=== PATIENT | female | born 1950 | race Caucasian/White ===

== ENCOUNTER → 2017-02-13 | Outpatient (CLI) | payer OTHER | LOC: BMCIMAGING 08:25 | PROVIDERS: ATTEND Family Medicine | DX: R05 Cough (principal) ==

== ENCOUNTER → 2017-09-25 | Outpatient (CLI) | payer OTHER | LOC: FIMAGING 08:19 | PROVIDERS: ATTEND Internal Medicine | DX: Z12.31 Encounter for screening mammogram for malignant neoplasm of breast (principal) ==

== ENCOUNTER 2017-09-28 13:52 | Observation (INO) | payer OTHER ==
--- NOTE | 2017-09-28 14:13 | CPEKG ---
Heart Rate: 34 RR Interval: 1765 P-R Interval: 144 QRSD Interval: 86 QT Interval: 480 QTC Interval: 361 P [place]: 46 QRS [place]: 112 T Wave [place]: -2 EKG Severity - ABNORMAL ECG - EKG Impression: SINUS BRADYCARDIA EKG Impression: LEFT POSTERIOR FASCICULAR BLOCK EKG Impression: CONSIDER INFERIOR INFARCT EKG Impression: CONSIDER ANTERIOR INFARCT EKG Impression: BORDERLINE T WAVE ABNORMALITIES Electronically Signed By: Khushi Colin 28-Sep-2017 22:38:53
--- NOTE | 2017-09-28 14:14 | EDPHY ---
HPI/HX/ROS/PE/MDM Narrative: CHIEF COMPLAINT: Low heart rate, face lacerations secondary to fall HISTORY OF PRESENT ILLNESS: The patient is a 67 y/o female with a history of anorexia and bradycardia complaining of a low heart rate and facial lacerations secondary to a fall. In June 2016, the patient was admitted for syncope and bradycardia. Patient reports her heart rate often is in the upper 30s. Today she tripped over a ergonomics technician. Her then moved her to a chair where she had an episode of lightheadedness and syncope. Her reports the patient was shaking and unresponsive for 15 seconds. The patient also experienced urinary incontinence. Denies feeling lightheaded or dizzy prior to the fall. Admits to cough for the past week. Admits to receiving flu vaccination this year. Denies personal or familial history of seizures. Denies history of cardiac disease. Denies taking aspirin or anticoagulants. Followed by Dr. Lee, bank cashier. Prior visits reveal the patient has sinus bradycardia with known heart rates in the 40's. No fever, chills, chest pain, shortness of breath, palpitations, vomiting, diarrhea, urinary complaints, headache. REVIEW OF SYSTEMS: Aside from elements discussed in the HPI, a comprehensive 10-point review of systems was reviewed and is negative. PAST MEDICAL HISTORY: Hypothyroidism, anorexia SOCIAL HISTORY: at bedside, [facility] [place] VITAL SIGNS: HR: 42. BP: 154/92. Others reviewed by me GENERAL: Well-developed, well-nourished, resting comfortably in no respiratory distress. HEENT: Abrasion above left eye and nose, superficial abrasion and contusion on left side of lip. Eyes: No icterus, no injection. Mouth: moist mucous membranes. No erythema or lesions. Neck: supple with no adenopathy. LUNGS: Clear to auscultation bilaterally, no wheezes, rhonchi or rales. CARDIAC: Bradycardia, no rubs, murmurs or gallops. ABDOMEN: Soft, nontender, nondistended, bowel sounds normal. BACK: No CVA tenderness. EXTREMITIES: Abrasion and contusion to left knee. No edema. Range of motion is normal throughout. NEURO: Alert and oriented, grossly nonfocal. SKIN: Warm and dry, no rash. PSYCHIATRIC: Normal mentation, no agitation. Portions of this note were transcribed by a senior medical writer. I personally performed a history, physical exam, medical decision making, and confirmed accuracy of information the transcribed note. ED Course: The patient is a 67 y/o female with a history of anorexia and bradycardia presenting with multiple facial lacerations secondary to tripping over her ergonomics technician. This was followed by a syncopal episode/ ? seizure activity. Her neuro exam is normal. Patient's heart rate is currently between 38 and 42. Patient is followed by Dr. Lee, bank cashier. EKG, head CT, and labs ordered. 1L IV NS administered. 1412: 12-LEAD EKG: Please see the full report in [facility]. My interpretation: Sinus bradycardia with a rate of 34. Borderline T wave abnormalities. 1500: Spoke with radiologist, he reports the patient's head CT is negative. 1529: Consulted with hospitalist service, Dr. Campbell accepts admission of this patient. Dr. Lee will be consulted. 1540: Consulted with Dr. Lee, bank cashier, regarding the patient's symptoms. He agrees with my plan for admission. Per Dr. Lee, a holter in 2016 demonstrated typical rates in low to mid 40s with lowest rate of 34 documented during sleep. 1544: Reassessed patient and discussed imaging findings. I have also discussed plan for admission; patient and her are comfortable with this plan. MDM: Diff dx considered included sinus bradycardia, complete heart block, electrolyte abnormalities, prolonged vagal tone, coronary artery disease, acute coronary syndrome, sick sinus syndrome, seizure. - Data Points Imaging Results: Impression: 1. No acute intracranial findings. If symptoms persist and clinical suspicion warrants, consider MRI. 2. Diffuse cerebral atrophy, with periventricular and subcortical low attenuation consistent with chronic microvascular ischemic gliosis. Findings discussed with Khushi Colin M.D., on September 28, 2017 at 1500. Dictated By: Andreas Chu MD Imaging: Discussed imaging studies w/ callisthenics instructor Radiologist, I viewed and interpreted images myself Laboratory Results: Laboratory Results 09/28/17 14:24 09/28/17 14:24 Medications Given: Discontinued Medications Sodium Chloride (Ns) 1,000 mls @ 0 mls/hr IV ONCE ONE; Wide Open PRN Reason: Protocol Stop: 09/28/17 14:21 Last Admin: 09/28/17 14:28 Dose: 1,000 mls Levothyroxine Sodium (Synthroid) 75 mcg PO EVERY OTHER DAY [facility] Stop: 03/28/18 08:59 Last Admin: 09/29/17 08:12 Dose: 75 mcg Pravastatin Sodium (Pravachol) 10 mg PO HS [facility] Stop: 03/27/18 20:59 Last Admin: 09/28/17 21:04 Dose: 10 mg General Initial Vital Signs: Initial Vital Signs Temperature (C) 36.8 C 09/28/17 13:57 Heart Rate 35 L 09/28/17 13:57 Respiratory Rate 16 09/28/17 13:57 Blood Pressure 147/110 H 09/28/17 13:57 O2 Sat (%) 97 09/28/17 13:57 O2 Delivery Mode Room Air Allergies/Adverse Reactions: codeine Allergy (Verified 09/28/17 16:21) passed out shellfish derived Allergy (Verified 09/28/17 16:21) diarrhea, vomiting Home Medications: Medication Instructions Recorded Alendronate Sodium [Fosamax 70 MG 70 mg PO GONZALES@0700 07/14/16 (*)] Ascorbic Acid [Vitamin C 500 mg 500 mg PO DAILY 07/14/16 (*)] Cholecalciferol Vit D3 [Vitamin D3 2,000 units PO DAILY 07/14/16 (*)] Herbals/Supplements -Info Only 1 ea PO DAILY 07/14/16 Levothyroxine [Synthroid 50 mcg 50 mcg PO EVERY OTHER DAY 07/14/16 (*)] Levothyroxine [Synthroid 75 mcg 75 mcg PO EVERY OTHER DAY 07/14/16 (*)] Multivitamins [Multivitamin (*)] 1 each PO DAILY 07/14/16 Pravastatin Sodium [Pravachol] 10 mg PO HS 07/14/16 Calcium Citrate W/Vit D [Citracal 315 mg PO BID@15,21 09/28/17 + D] Departure - Departure Disposition: [facility] Acute Clinical Impression: Bradycardia Syncope Qualifiers: Syncope type: unspecified Qualified Code(s): R55 - Syncope and collapse Condition: Fair Report Scribed for: Khushi Colin Report Scribed by: Jaylyn Galindo Date of Report: 09/28/17 Time of Report: 14:11
[2017-09-28] MEDS ORDERED: NS 1,000 ML IV ONE (14:20)
[2017-09-28 14:31] LABS: PLATELET COUNT 197 10^3/uL (150-400)
[2017-09-28] MEDS ORDERED: ONDANSETRON 4 MG/2 ML VIAL IVP PRN (17:39)
[2017-09-28] MEDS ORDERED: ACETAMINOPHEN 325 MG TAB PO PRN (17:39)
[2017-09-28] MEDS ORDERED: IBUPROFEN 200 MG TAB PO PRN (17:39)
[2017-09-28] MEDS ORDERED: ONDANSETRON DISINTEGRATING 4 MG TAB PO PRN (17:39)
--- NOTE | 2017-09-28 18:18 | GHP ---
[f rep st] HISTORY AND PHYSICAL DATE OF ADMISSION: 09/28/2017 CHIEF COMPLAINT: Syncope. HISTORY OF PRESENT ILLNESS: This is a 67-year-old female who does have a known history of asymptomat ic bradycardia. She follows up with Dr. Lee. Today, she tripped over her ornamental bronze worker, fell on her f danyelle and sustained a little bit of lacerations on her lip and nose. Her was there and had her sit down and as she sat down, she began feeling dizzy and lightheaded, and then had a syncopal episo de. It was noticed that she had some twitching and did lose her urine, but was not particularly conf used afterwards. Currently, the patient is feeling great. She denies any dizziness, shortness of breath or chest pain . She has fainted several times in the past. She usually passes out when she cuts herself, and has in the past when she has not eaten on a plane ride, and when she has taken codeine before. She does not usually get lightheaded with exertion. She is actually quite active and just finished a bike iCrossing last year. REVIEW OF SYSTEMS: A 10-point review of systems was obtained, and other than stated is negative. PAST MEDICAL HISTORY: Hypothyroidism, hyperlipidemia. MEDICATIONS: Reviewed. SOCIAL HISTORY: No smoking. Occasional alcohol. She is quite active. FAMILY HISTORY: Reviewed and noncontributory. PHYSICAL EXAM: VITAL SIGNS: Afebrile, blood pressure is 130/75, heart rates in the 30s to low 40s, respiratory rate 16, oxygen saturation 97% in room air. GENERAL: The patient is well-developed, in no apparent distress. HEENT: Nonicteric sclerae. Extraocular movements intact. Moist mucous membr anes. There is some mild excoriation, laceration of nose and lip. NECK: Supple. No thyromegaly. LUNGS: Good air effort. Clear to auscultation bilaterally. CARDIOVASCULAR: Bradycardic. No murmu rs, rubs, or gallops. ABDOMEN: Positive bowel sounds, soft, nontender, nondistended. No hepatosple nomegaly. EXTREMITIES: No clubbing, cyanosis, or edema. SKIN: Without rash. Dry and intact. SHERYL ROLOGIC: Alert and oriented x3. Moving all 4 extremities equally. PSYCH: Normal mood and affect. LABS: CBC is normal. Chemistries normal. Troponin is negative. TSH is normal. No flu. IMAGING: Head CT negative for any acute changes. EKG shows sinus bradycardia and nonspecific T-wave abnormalities. ASSESSMENT AND PLAN: This is a 67-year-old female with a history of known bradycardia who had a sync opal episode immediately after a fall. 1. Syncope. This is most likely due to vasovagal response. She is prone to this. Says she does fa int when she cuts herself or has an injury. She does have known bradycardia and she appears to be as ymptomatic in her regular life. She has actually had multiple Holter monitors and has been follow [facility] Cardiology. Will admit her overnight for observation. Cardiology will see her in the morning. Dixie chaney will be able to discharge at that time. 2. Hypothyroidism. 3. Hyperlipidemia. /[id number]/MODL
[2017-09-28] MEDS ORDERED: PRAVASTATIN SODIUM 10 MG TAB PO SCH (21:00)
[2017-09-29 07:29] VITALS: TEMP 97.4
[2017-09-29] MEDS ORDERED: LEVOTHYROXINE 75 MCG TAB PO SCH (09:00)
--- NOTE | 2017-09-29 11:50 | GDS ---
[f rep st] DISCHARGE SUMMARY DISCHARGE DIAGNOSES: 1. Syncope, likely vasovagal. 2. Sinus bradycardia. HOSPITAL COURSE: Syncope: The patient was placed on the monitor where she has remained in sinus bra dycardic rhythm, without any malignant arrhythmias. On day of discharge, the patient states she feel s at her baseline and would like to go home. I suspect that her syncopal episode was vasovagal in et iology. PHYSICAL EXAMINATION: VITAL SIGNS: Blood pressure 109/68, pulse 47, respiratory rate 10. O2 saturat ion 96% on room air. Temperature afebrile. GENERAL: No acute distress. HEART: S1, S2. LUNGS: Chong ar. ABDOMEN: Soft. EXTREMITIES: No edema. LABS AND STUDIES: Done this hospital stay, head CT done 09/28/2017 showed no acute intracranial. DISCHARGE MEDICATIONS: Please refer to discharge medication reconciliation [facility] for details. DISCHARGE INSTRUCTIONS: The patient will be discharged from the hospital where she should follow up with her union carpenter. She was instructed to use caution and avoid activities where syncopal spell c ould result in a catastrophic injury. The patient verbalizes understanding of this. /[id number]/MODL
[2017-09-29 12:02] VITALS: BP 104/56; PULSE 44; RESP 14; O2SAT 95
--- NOTE | 2017-09-29 15:37 | ASDISCHSUM ---
Discharge Information Plan Status:Home with No Needs Medically Cleared to Leave:09/28/2017 Discharge Date:09/29/2017 12:30 PM CM D/C Disposition:Home, Routine, Self-Care ADT D/C Disposition:Home, Routine, Self-Care Projected Discharge Date:09/29/2017 12:00 AM Transportation at D/C:Family Discharge Delay Reason: Follow-Up Date:09/29/2017 12:00 AM Discharge Slot: Final Diagnosis:Brett, Syncope, Facial injuries Placement Information Patient Contact Information Contact Name:RICHARDDewey ROSENBAUM Relationship: Address:[facility] KAMRYN MICHAEL Work Phone: City:[place] [facility] Phone: [facility]/Zip Code:[place] [address] Email: Financial Information Financial Class: Primary Plan Desc:MEDICARE OUTPATIENT Primary Plan Number:[id number] Secondary Plan Desc:STANDARD LIFE AND ACCIDENT Secondary Plan Number:[id number] Assessment Information Case Management Discharge Plan Note Case Management Discharge Discharge Order Complete? Answers: Yes Patient to Obtain Answers: via Family Medications Transportation Arranged Answers: Family/Friends Transport will Pick (Date 09/29/2017 12:00 AM & Time) Family Notified Answers: Yes Notes: present Discharge Comments Notes: 67 year old female admitted after a fall, syncope at home. She also sustained facial lacerations. Patient has a hx of hypothyroid and HLD. She felt fine today and wanted to be discharged home. She will follow up with her lockstitch shoulder joiner. Date Signed: 09/29/2017 03:34 PM Electronically Signed By:Chanelle Madison LCSW Intervention Information Intervention Type:COLBY-Signed Date of Service:09/29/2017 10:22 AM Patient Type:Observation Staff Member:Elisa Billingsley Hours: Discipline: Severity: Comment:
[2017-09-30] MEDS ORDERED: LEVOTHYROXINE 50 MCG TAB PO SCH (09:00)
== END 2017-09-29 12:30 | disposition home or self-care (01) ==
LOC: F2N 17:24
PROVIDERS: ADMIT Internal Medicine; ATTEND Internal Medicine
DX: R55 Syncope and collapse (principal); S01.511A Laceration without foreign body of lip, initial encounter; S01.21XA Laceration without foreign body of nose, initial encounter; R00.1 Bradycardia, unspecified; E03.9 Hypothyroidism, unspecified; E78.5 Hyperlipidemia, unspecified; W01.0XXA Fall on same level from slipping, tripping and stumbling without subsequent striking against object, initial encounter
CPT/HCPCS: 70450; 93005; G0378

== ENCOUNTER 2018-02-20 17:29 | Inpatient (IN) | payer OTHER ==
[2018-02-20] MEDS ORDERED: ONDANSETRON 4 MG/2 ML VIAL IVP PRN (21:37)
[2018-02-20] MEDS ORDERED: ONDANSETRON DISINTEGRATING 4 MG TAB PO PRN (21:37)
[2018-02-20] MEDS: oxyCODONE IR 5 MG TAB PO PRN (22:30)
--- NOTE | 2018-02-20 23:43 | GHP ---
[f rep st] HISTORY AND PHYSICAL DATE OF ADMISSION: 02/20/2018 HISTORY OF PRESENT ILLNESS: Ms. Ríos is a 67-year-old female, with longstanding bradycardia, who h ad a syncopal episode a couple of weeks ago and had a fall today, where she was [facility]. She fell on her face. She has actually presented to [facility], where she was found to be bradycardic and had a facial fracture. She was transferred here for pacemaker placement. She act ually has long had a pacemaker recommended to her. She takes no miladis agents. She has declined in t he past. It sounds like she has not thought that many of her falls are mechanical in nature. She do es have a history of longstanding anorexia, and this is likely the vernon of her bradycardia. She had planned to have a pacemaker placed by Dr. Desai on this coming Thursday, which is 3 days from no w. At [facility], , she was seen by Dr. Kevin Ricardo, who I know well, and cleared fr om trauma other than the fact that she has a facial fracture, which will require surgical repair. Pe r OMFS, it is stable and can wait following pacemaker placement. No fever, chills, cough, sputum, na usea, vomiting, diarrhea. No lower extremity edema or other heart failure symptoms. REVIEW OF SYSTEMS: Complete 10-point review of systems conducted, negative except as noted in the HP I. PAST MEDICAL HISTORY: Hypothyroidism, hyperlipidemia, anorexia, osteopenia. ALLERGIES: Codeine and shellfish. HOME MEDICATIONS: Alendronate, ascorbic acid, bimatoprost, calcium carbonate, vitamin D3, levothyrox ine, multivitamin, pravastatin. SOCIAL HISTORY: No tobacco. Rare alcohol. FAMILY HISTORY: No sudden cardiac . PHYSICAL EXAMINATION: VITAL SIGNS: Temp 35.8, blood pressure 123/79, pulse 41, breathing 16 times a minute, 98% on room air. GENERAL: No acute distress. HEENT: Sclerae anicteric. Oropharynx clear . Mucous membranes moist. NECK: Supple. No lymphadenopathy or JVD. LUNGS: Clear to auscultation bilaterally. HEART: S1, S2. ABDOMEN: Soft, nontender, nondistended. LOWER EXTREMITIES: No belinda a. Calves nontender. SKIN: Without rash. FACIAL EXAM: She has a cut or she has an abrasion on he r chin. There is no obvious facial deformity. DIAGNOSTIC DATA: On review of chart from outside hospital, EKG shows sinus bradycardia at 42, normal axis and intervals, no ST or T-wave changes. She has Chem-7 with sodium 131, potassium 3.7, chlorid e 96, bicarb 25, BUN 26, creatinine 1, glucose 97, troponin 0. Troponin is also [address] of the face shows a comminuted, displaced fracture of the right mandibular condyle and neck with d islocation of the right temporomandibular joint. Right-sided facial fractures including fractures of the right zygomatic arch, right zygomatic bone, lateral wall of the right orbit, and maxillary sinus . She has a CT of the neck showing no cervical spine fracture. I discussed the case with Dr. Aaliyah Rachel. ASSESSMENT/PLAN: A 67-year-old female with facial fractures and bradycardia. 1. Bradycardia. This is symptomatic bradycardia requiring pacemaker. There are no medications on b oard that would slow down her heart rate. She is followed on telemetry. She is hemodynamically stab le. Cardiology is aware of her and plans to take pacemaker. 2. Facial fractures. Will place her on a soft mechanical diet. She is to have outpatient surgery w [facility] spread cutter. 3. Hypothyroidism. Check TSH. I doubt this is the cause. 4. Facial fractures addendum: Oxycodone, acetaminophen p.r.n. 5. Hyponatremia. This is mild. Will follow. DISPOSITION: 1. Inpatient status. 2. Prophylaxis: Low molecular heparin will be on hold given need for pacer. /[id number]/MODL
--- NOTE | 2018-02-21 00:46 | CPEKG ---
Heart Rate: 37 RR Interval: 1622 P-R Interval: 148 QRSD Interval: 90 QT Interval: 540 QTC Interval: 424 P [place]: 46 QRS [place]: 107 T Wave [place]: 59 EKG Severity - ABNORMAL ECG - EKG Impression: SINUS BRADYCARDIA EKG Impression: RIGHT AXIS DEVIATION EKG Impression: PROBABLE INFERIOR INFARCT, AGE INDETERMINATE Electronically Signed By: David Rincon 21-Feb-2018 18:08:06
--- NOTE | 2018-02-21 00:54 | PDMN ---
Medical Necessity Medical necessity: C/M review: est. > 2 MN LOS for eval and TX of acute and persistent symptomatic bradycardia, acute facial fractures seen on CT - comminuted displaced fracture of the right mandibular condyle and neck with dislocation of the right temporomandibular joint, fractures of the right zygomatic arch, right zygomatic bone, lateral wall of the right orbit and maxillary sinus, requiring Cardiology consult planned 02/21/2018 pacemakwer placement, hyponatremia, ongoing cardiac monitoring, pulse oximetry, comorbid patient [facility] - fall on her face, patient presented at [facility], found to be bradycardic and had facial fractures and transferred to [facility] for pacemaker placement, longstanding history of bradycardia, patient declined pacemaker in the past, anorexia - likely the vernon of bradycardia, hypothyroidism, hyperlipidemia, osteopenia, patient to have outpatient surgery with mold insert changer per H/P.
[2018-02-21] MEDS: oxyCODONE IR 5 MG TAB PO PRN ×2 (03:14→14:00)
--- NOTE | 2018-02-21 07:49 | HOSPPROG ---
Hospitalist Progress Note Assessment/Plan: # symptomatic bradycardia with syncope- needs ppm - cards aware # facial fractures - will discuss with facial surgery - per [facility] ED notes - Dr Foley had recommended that patient have her jaw fixed after ppm placement - no oral surgeon button puncher today; Dr Garrett is button puncher tomorrow - will discuss with him when he is available # hx anorexia nervosa - BMI 17 # HLD - statin # hypothyroid - TSH 5, cont synthroid Subjective: tearful; scared regarding her last episode Objective: Vital Signs Temp Pulse Resp BP Pulse Ox 36.1 C 41 L 19 94/55 L 98 02/21/18 07:29 02/21/18 07:29 02/21/18 07:29 02/21/18 07:29 02/21/18 07:29 Laboratory Results 02/21/18 03:12 02/20/18 02/21/18 02/22/18 05:59 05:59 05:59 Intake Total 0 Balance [address] facial bones reviewed: Comminuted and displaced fracture of the right mandibular condyle and neck, with dislocation of the right temporomandibular joint. Right sided facial fractures, including fractures of the right zygomatic arch, right zygomatic bone , and lateral martin of right orbit and maxillary sinus. - Physical Exam Constitutional: cachectic Cardiovascular: no murmur, rub, or gallop, bradycardia Respiratory: no respiratory distress, no rales or rhonchi, clear to auscultation Gastrointestinal: soft, non-tender abdomen, no palpable masses, No guarding, No rebound, No distension ICD10 Worksheet Patient Problems: Problems Problem Status Onset Bradycardia Acute Syncope and collapse Acute Syncope Acute
[2018-02-21] MEDS: LEVOTHYROXINE 50 MCG TAB PO SCH (08:37)
--- NOTE | 2018-02-21 09:17 | ASMTCMCOM ---
CM Note CM Note Notes: Chart reviewed. 67 year old female admitted to [facility] then transfered here for care . HX significant for bradycardia. Will need facial surgery on outpatient basis. Plan is for PPM. Normally independent, no anticipated needs at this time. CM available should needs arise. Plan: Home Independently. Date Signed: 02/21/2018 09:16 AM Electronically Signed By:Dahlia Russell RN
[2018-02-21] MEDS ORDERED: ceFAZolin 2 GM/DEXTROSE 100 ML IV ONE (09:39)
[2018-02-21] MEDS ORDERED: NS 1,000 ML IV ONE (09:39)
[2018-02-21] MEDS ORDERED: BACITRACIN IRRIGATION/NS 50,000 UNITS/1,000 ML BTL IRR ONE (09:39)
[2018-02-21] MEDS ORDERED: LIDOCAINE 1% 300 MG/30 ML SDV ONE (10:35)
[2018-02-21] MEDS ORDERED: IOPAMIDOL (ISOVUE-300) 50 ML VIAL ONE (10:35)
[2018-02-21] MEDS ORDERED: fentaNYL 100 MCG/2 ML INJ ONE (10:36)
[2018-02-21] MEDS ORDERED: LIDO/EPI 1% **for epidural** 30 ML SDV ONE (10:36)
[2018-02-21] MEDS ORDERED: MIDAZOLAM 2 MG/2 ML VIAL ONE (10:36)
[2018-02-21] MEDS ORDERED: BUPIVACAINE 0.5% 30 ML SDV ONE (10:37)
--- NOTE | 2018-02-21 10:59 | PDHPUP ---
History & Physical Update H&P update statement: This history and physical update is based on an assessment of the patient which was completed after admission or registration (within 24 hours), but prior to the surgery/procedure. H&P update: H&P reviewed & patient examined (patient has extreme bradycardia with associated syncope.), no change in patient's condition since H&P completed
--- NOTE | 2018-02-21 10:59 | PDPROPOC ---
Sedation Plan of Care Sedation Plan of Care: vital signs stable, mental status noted, patient educated of risks, benefits, alternatives, patient can tolerate sedation ASA Classification: ASA 3 Planned drugs: fentanyl, midazolam, other (possible etomidate) Mallampati Score: Class 3 Mallampati Reference Image: Patient passed 3-3-2 rule?: Yes
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
[2018-02-21] MEDS ORDERED: methylPREDNISolone SOD SUCC 125 MG/2 ML VIAL ONE (11:31)
[2018-02-21] MEDS ORDERED: FAMOTIDINE 20 MG/NACL/50 ML BAG IV ONE (11:31)
[2018-02-21] MEDS ORDERED: CEFAZOLIN 1 GM/DEXTROSE/50 ML BAG IV ONE (11:43)
--- NOTE | 2018-02-21 12:57 | POSTOPPROG ---
Post Op Note Date of Operation: 02/21/18 Surgeon: Ruben Phoenix Pre-op Diagnosis: bradycardia syncope Post-op Diagnosis: bradycardia syncope pacemaker implantation Indication: extreme bradycardia suspected cause of recurrent syncope. Procedure: dual chamber pacer insertion Inf/Abcess present in the surg proc area at time of surgery?: No Depth: Superfical (Skin SQ) EBL: Minimal
--- NOTE | 2018-02-21 13:21 | CPEKG ---
Heart Rate: 50 RR Interval: 1200 P-R Interval: 172 QRSD Interval: 92 QT Interval: 504 QTC Interval: 460 QRS Roxana: 123 T Wave Roxana: 46 EKG Severity - ABNORMAL ECG - EKG Impression: ATRIAL-PACED RHYTHM EKG Impression: LEFT POSTERIOR FASCICULAR BLOCK EKG Impression: PROBABLE INFERIOR INFARCT, AGE INDETERMINATE Electronically Signed By: David Rincon 21-Feb-2018 18:07:40
[2018-02-21] MEDS: CHOLECALCIFEROL VIT D3 1,000 UNITS TAB PO SCH (18:02)
[2018-02-21] MEDS: ASCORBIC ACID 500 MG TAB PO SCH (18:02)
[2018-02-21] MEDS: CALCIUM CARB W/VIT D 500 MG TAB PO SCH (18:02)
--- NOTE | 2018-02-21 18:07 | CPIP ---
[f rep st] INVASIVE CARDIAC PROCEDURE DATE OF PROCEDURE: 02/21/2018 PROCEDURE PERFORMED: Dual-chamber pacemaker insertion. DEVICE: Biotronik MRI conditional dual-chamber pacemaker Edora 8, model number Edora 8 DRT, serial # [id number]. The atrial lead is a a Biotronik Solia S45, serial #[id number], and the ventricular lead is a Biotronik Solia S53, serial #[id number]. Those are also MRI conditional leads as well. COMPLICATIONS: None. INDICATIONS/APPROPRIATE USE CRITERIA: Yessica Ríos has had 2 episodes of unexplained syncope as well as severe and extreme bradycardia, which has been present for years. Her syncope is suspected t o be secondary to long sinus arrest and pauses, so the indication is symptomatic sinus arrest and lupis ses with associated syncope and facial fracture on 2 separate occasions in the past 3 weeks. PROCEDURE IN DETAIL: After informed consent was obtained, n.p.o. status was confirmed. The region o f the left subclavicular fossa was cleaned, prepped, and draped in a sterile fashion. Approximately 20 cc of 1% lidocaine were utilized for local anesthesia. Intravenous conscious sedation with Versed and fentanyl were given. The skin was sharply incised with a #10 blade. Electrocautery and local p ressure were used for hemostasis. Sharp and blunt dissection were used to perform a pacer pocket ove rlying the pectoralis major fascia. An 18-gauge Cook needle was used to gain access to the left subc lavian vein x1. The vein was very superficial and the patient was placed in a Trendelenburg position prior to the puncture. We used a retained wire technique to place 2 J wires and then advanced a 6-F rench peel-away sheath over the lateral wire. The wire and dilator were removed. The right ventricu lar lead was manipulated with care into the right ventricular apex and screwed into place. It was te sted and found to have an R-wave amplitude of 6.3, lead impedance of 624 ohms, with a pacing threshol d of 0.6 V at 0.4 milliseconds. The peel-away sheath was removed and the lead was sutured into place with 0 Ethibond. The procedure was repeated over the medial wire for the right atrial lead. Right atrial lead was manipulated with care into the right atrial appendage and then screwed into place, te sted, and found to have a P-wave amplitude of 2.4 mV with a threshold of 0.8 at 0.4 milliseconds. Le ad impedance 487 ohms. The peel-away sheath was removed. The lead was sutured into place with Ethib ond. The pocket was then thoroughly flushed and checked for bleeding. Excellent hemostasis was docu mented and obtained. The device was brought to the table. The ventricular lead serial number was ch ecked and placed in the lower pole lead housing of the device and ratcheted into place. The setscrew was firmly applied. This resulted in ventricular pacing at the set rate of 50 beats per minute. Th e atrial lead serial number was checked and placed in the upper pole lead housing. The setscrew firm ly applied documenting atrial pacing and V sensing. The device was sutured into place with 0 silk an d the skin was closed with a 3 layered 2-0 and 3-0 Vicryl using vertical and horizontal mattress sutu res followed by closure of the skin with interrupted fanta and a Steri-Strip application. The sushil ent tolerated the procedure well without immediate complication, returned to the [facility] area in good and stable condition, where a stat postoperative EKG and chest x-ray will be matt jalloh. /[id number]/MALORIEL
[2018-02-21] MEDS: BIMATOPROST TP SCH (21:15)
[2018-02-21] MEDS: PRAVASTATIN SODIUM 10 MG TAB PO SCH (21:15)
[2018-02-22] MEDS: oxyCODONE IR 5 MG TAB PO PRN (03:26)
[2018-02-22] MEDS: LEVOTHYROXINE 50 MCG TAB PO SCH (03:28)
[2018-02-22] MEDS: LEVOTHYROXINE 75 MCG TAB PO SCH (04:05)
[2018-02-22] MEDS: ASCORBIC ACID 500 MG TAB PO SCH (08:09)
[2018-02-22] MEDS: CHOLECALCIFEROL VIT D3 1,000 UNITS TAB PO SCH (08:10)
[2018-02-22] MEDS: CALCIUM CARB W/VIT D 500 MG TAB PO SCH (08:10)
--- NOTE | 2018-02-22 09:18 | CPEKG ---
Heart Rate: 53 RR Interval: 1132 P-R Interval: 148 QRSD Interval: 84 QT Interval: 464 QTC Interval: 436 P Albany: 75 QRS Albany: 103 T Wave Albany: -1 EKG Severity - ABNORMAL ECG - EKG Impression: SINUS RHYTHM . SINGLE ATRIAL PACER SPIKE SEEN. EKG Impression: RIGHT AXIS DEVIATION EKG Impression: PROBABLE INFERIOR INFARCT, AGE INDETERMINATE EKG Impression: COMPARED WITH 02/21/2018 AT 1:19 P.M., ATRIAL PACING NOW ABSENT Electronically Signed By: Nilsa Victoria 22-Feb-2018 16:32:11
[2018-02-22 09:24] LABS: PLATELET COUNT 206 10^3/uL (150-400)
[2018-02-22 09:32] LABS: INR 1.1 (0.83-1.16); PROTIME(PATIENT) 14.4 SEC (12.0-15.0)
[2018-02-22] MEDS ORDERED: NS 1,000 ML IV ONE (11:11)
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
--- NOTE | 2018-02-22 12:47 | HOSPPROG ---
Hospitalist Progress Note Assessment/Plan: # symptomatic bradycardia with syncope - s/p ppm # hypotension - NS bolus; echo ordered per cards # facial fractures - - discussed with Dr Garrett - he will evaluate today # hx anorexia nervosa - BMI 17 # HLD - statin # hypothyroid - TSH 5, cont synthroid Subjective: chest slightly sore after pacemaker placement Objective: Vital Signs Temp Pulse Resp BP Pulse Ox 36.8 C 50 L 12 85/52 L 93 02/22/18 11:31 02/22/18 11:31 02/22/18 11:31 02/22/18 11:31 02/22/18 11:31 Laboratory Results 02/22/18 09:07 02/22/18 09:07 02/21/18 02/22/18 02/23/18 05:59 05:59 05:59 Intake Total 0 150 Output Total 1 Balance 0 149 PT 14.4 SEC (12.0-15.0) 02/22/18 09:07 INR 1.10 (0.83-1.16) 02/22/18 09:07 - Physical Exam Constitutional: no apparent distress, appears nourished, cachectic Cardiovascular: regular rate and rhythym, no murmur, rub, or gallop Respiratory: no respiratory distress, no rales or rhonchi, clear to auscultation Gastrointestinal: soft, non-tender abdomen, no palpable masses, No guarding, No rebound, No distension ICD10 Worksheet Patient Problems: Problems Problem Status Onset Bradycardia Acute Syncope and collapse Acute Syncope Acute
--- NOTE | 2018-02-22 13:59 | ECHO ---
[email or web address] [address] [address] Main: [phone] Fax: Transthoracic Echocardiogram Name: STEPHEN LOWE MR#: [id number] Study Date: 02/22/2018 Study Time: 11:49 AM Date of : 1950 Age: 67 year(s) Height: 162.6 cm (64 in.) Weight: 44.91 kg (99 lb.) BSA: 1.45 m2 Gender: Female Examination: Echo Indication: s/p PPM and hypotensive with hx of syncope Image Quality: Contrast: Requested by: Dragan Ramos BP: 85 mmHg/52 mmHg Heart Rate: Rhythm: Indication: s/p PPM and hypotensive with hx of syncope Procedure Staff Topology Professor: Gifty Rosales RD Reading Physician: Yuriy Lawler MD Requesting Provider: Conclusions: Normal global systolic LV function. The ejection fraction is estimated to be 70-75 %. There is a pacemaker lead noted in the right ventricle. The right atrium is mildly dilated. Trivial mitral valve regurgitation. Trivial aortic valve regurgitation. Trivial tricuspid valve regurgitation. Measurements: Chambers Valvular Assessment AV/MV Valvular Assessment TV/PV Normal Normal Normal Name Value Range Name Value Range Name Value Range Ao Carol (2D): 3.0 cm (1.4 cm-2.6 AV meanP mmHg ( - ) TR Vmax: 1.85 mm/s ( - ) cm) MV E Vmax: 0.60 m/s ( - ) TR PGmax: 14 mmHg ( - ) IVSd (2D): 0.8 cm (0.6 cm-1.1 MV A Vmax: 0.25 m/s ( - ) syst. PAP: 19 mmHg ( - ) cm) MV E/A: 2.40 ( - ) LVDd (2D): 3.6 cm (3.9 cm-5.3 cm) LVDs (2D): 2.0 cm (2.1 cm-4 cm) LVPWd (2D): 1.0 cm ( - ) LVEF (2D): 74 (>=54 %) EF Range: 70-75 % Continued Measurements: Chambers Valvular Assessment AV/MV Valvular Assessment TV/PV Name Value Name Value Name Value LADs Lon.5 cm MV E' Septal: 0.08 m/s CVP (est.): 5 mmHg LA Area: 14.9 cm2 Patient: STEPHEN LOWE Study Date: 02/22/2018 Page 1 of 2 11:49 AM MV E/E' Septal: 7.10 MV E/E' Lateral: 8.80 Additional Vessels Name Value Ao Ascendin.7 cm Findings: Left Ventricle: Normal size left ventricle. No LV hypertrophy. Normal global systolic LV function. The ejection fraction is estimated to be 70-75 %. No regional wall motion abnormality. Right Ventricle: Normal size right ventricle. There is a pacemaker lead noted in the right ventricle. There is a moderator band noted in the right ventricle. Left Atrium: The left atrium is normal in size. Right Atrium: The right atrium is mildly dilated. Mitral Valve: The mitral valve is normal in appearance and function. Trivial mitral valve regurgitation. Aortic Valve: The aortic valve is normal in appearance and function. Trivial aortic valve regurgitation. Tricuspid Valve: The tricuspid valve is normal in appearance and function. Trivial tricuspid valve regurgitation. Pulmonic Valve: The pulmonic valve is normal in appearance and function. Aorta: The aorta is normal. Pericardium: No pericardial effusion. Exam Comments: Technically difficult apicals (99 lbs).. (No Signature Object) Patient: STEPHEN LOWE Study Date: 02/22/2018 Page 2 of 2 11:49 AM [id number]
[2018-02-22] MEDS: ACETAMINOPHEN 325 MG TAB PO PRN (14:43)
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
[2018-02-22] MEDS: BIMATOPROST TP SCH (20:59)
[2018-02-22] MEDS: PRAVASTATIN SODIUM 10 MG TAB PO SCH (20:59)
[2018-02-23] MEDS: ACETAMINOPHEN 325 MG TAB PO PRN (03:48)
[2018-02-23 07:44] VITALS: BP 89/66
[2018-02-23] MEDS: CALCIUM CARB W/VIT D 500 MG TAB PO SCH (08:42)
[2018-02-23] MEDS: ASCORBIC ACID 500 MG TAB PO SCH (08:42)
[2018-02-23] MEDS: CHOLECALCIFEROL VIT D3 1,000 UNITS TAB PO SCH (08:43)
--- NOTE | 2018-02-23 09:13 | PDCARPN ---
Cardiology Progress Note Chief Complaint: Patient reports mild pain at her left hand. Assessment/Plan: Assessment: 67-year-old female with significant past cardiac history that includes subclinical CAD based off of cardiac calcium scoring, symptomatic bradycardia ( sinus bradycardia) with noted episodes of syncope, hyperlipidemia, hypothyroidism and anorexia. Admitted to [facility] on 02/21 for syncopal of vent with facial injuries causing facial fractures. Transferred over to [facility], and underwent ppm implantation, Biotronik, with atrial and ventricular leads implantation on 02/21/2018. Today: Patient has been up and walking the unit without difficulties. Continuous cardiac monitoring showing a paced with intrinsic ventricular rhythm , no other malignant arrhythmias or pauses noted. Vital signs have been stable. Echocardiogram done yesterday showing normal LV systolic function with EF of 70-75%, right atrium was mildly dilated, trivial MR, trivial AI, trivial TR. No pericardial effusion. Denies of any lightheadedness, near-syncope or syncopal. Plan: 1. Symptomatic bradycardia: History of syncopal event, most recent 02/20/2018. Status post ppm implantation, device check done yesterday showing ppm functioning within normal limits. Lower rate limit set at [address] [place]. Postop day 1 chest x-ray showing no delayed pneumothorax. Post pacemaker implantation discharge instructions went over with the patient. She has been scheduled for a 1 week wound and device check. 2. Hypotensive: Patient's systolic blood pressures been running in the 120s. Echocardiogram showing normal LV systolic function. No pericardial effusion. H &H stable from yesterday. 3. Subclinical CAD: Patient denies of any chest pressure, pain, or shortness of breath or symptoms suggesting of ischemia. Patient currently has off of aspirin, if potentially she needs surgery for facial fractures. Would have her start aspirin, 81 mg p.o. q.day when deemed safe. She is on secondary risk prevention of statin therapy, pravastatin. 4. Hyperlipidemia: Patient has been resumed on home statin therapy. 5. Hypothyroidism: Patient has been resumed on home dosage of Synthroid. 6. Facial fractures: Patient was seen by surgery yesterday. She will plan on seeing him in 1 weeks time as an outpatient. Post pacemaker implantation discharge instructions went over with the patient. She has been scheduled for follow-up visit for device and wound check in 1 week. She will follow up with her primary upper shaper, Dr. Lee, in 1 month. 02/23/18 09:12 Subjective: She denies of any lightheadedness, palpitations, chest pressure, pain or shortness of breath. Objective: Vital Signs (8 Hrs) Temp Pulse Resp BP Pulse Ox 02/23/18 07:43 36.6 C 50 L 18 89/66 L 95 02/23/18 03:50 36.6 C 50 L 16 121/74 H 94 Intake/Output (24 Hrs) 02/22/18 02/23/18 02/24/18 05:59 05:59 05:59 Intake Total 150 980 Output Total 1 Balance 149 980 Intake: Oral (ml) 150 980 Output: Urine (ml) 1 Toilet 1 Other: Intake Quantity Yes Sufficient Number of Voids Toilet 2 1 Result Diagrams: 02/22/18 09:07 02/22/18 09:07 Cardiac Labs: Cardiac Lab Results (72 Hrs) 02/21/18 02/20/18 03:12 21:56 Troponin I < 0.012 < 0.012 - Physical Exam Constitutional: no apparent distress, other (Thin elderly female) Ears, Nose, Mouth, Throat: moist mucous membranes Cardiovascular: regular rate and rhythm, no murmurs, pulses symmetric bilat, No jugular vein distention, No carotid bruit Peripheral Pulses: 1+: dorsalis-pedis (R), dorsalis-pedis (L), 2+: carotid (R), carotid (L) Respiratory: clear to auscultate bilat, no crackles, no wheezes Gastrointestinal: normoactive bowel sounds Skin: no rashes, warm, no edema, other (Pacemaker insertion site, left anterior chest, dressing intact. No redness, swelling, drainage, ecchymosis, or hematoma.) Neurologic: AAOx3 Psychiatric: cooperative, interactive ICD10 Worksheet Patient Problems: Problems Problem Status Onset Bradycardia Acute Syncope Acute Syncope and collapse Acute
--- NOTE | 2018-02-23 10:17 | GDS ---
[f rep st] DISCHARGE SUMMARY ALL DIAGNOSES: 1. Symptomatic bradycardia, status post pacemaker placement. 2. Fall/syncope with facial fracture. 3. Hypotension. 4. Anorexia nervosa. 5. Hyperlipidemia. 6. Hypothyroid. HOSPITAL COURSE: A 67-year-old female who initially presented to [facility] after syncopal episode. Corrie ging there. CT spine was negative for acute fracture. She had a head x-ray, which was also negative . She had a facial x-ray, which showed mandibular, as well as zygomatic arch fracture. She has been recommended to have a pacemaker as an outpatient, actually had that scheduled for the da y of discharge. This was placed 2 days prior to discharge. Rate has been set at 50, pacer appears t o be functioning appropriately. She has followup with Dr. Lee on March 25. She also has a device c collink on February 28. She has been given all this information. She was seen by Dr. Garrett for her facial fractures. He recommends a soft, non-chewing pureed diet fo r 6 weeks. He is hopeful that she will not require any operative fixation of this. He wants her to follow up in 1 week so he can reassess. She has been given his contact information. FOLLOWUP: 1. Cardiology as above. 2. Dr. Garrett as above. DISPOSITION: She is discharged home with her in stable condition BILLING: I spent more than 30 minutes on the day of discharge coordinating care. /[id number]/MODL
[2018-02-23] MEDS: LEVOTHYROXINE 75 MCG TAB PO SCH (11:16)
== END 2018-02-23 11:34 | disposition home or self-care (01) | DRG 243 ==
LOC: OBSVTOIN 21:10 → F2W 21:10
PROVIDERS: ADMIT Internal Medicine; ATTEND Internal Medicine
PROC: 0JH636Z Insertion of Pacemaker, Dual Chamber into Chest Subcutaneous Tissue and Fascia, Percutaneous Approach (ICD-10-PCS; principal; 2018-02-21 13:05)
PROC: 02HK3JZ Insertion of Pacemaker Lead into Right Ventricle, Percutaneous Approach (ICD-10-PCS; principal; 2018-02-21 13:05)
PROC: 02H63JZ Insertion of Pacemaker Lead into Right Atrium, Percutaneous Approach (ICD-10-PCS; principal; 2018-02-21 13:05)
DX: R00.1 Bradycardia, unspecified (principal); I95.9 Hypotension, unspecified; S02.611A Fracture of condylar process of right mandible, initial encounter for closed fracture; W19.XXXA Unspecified fall, initial encounter; Y92.512 Supermarket, store or market as the place of occurrence of the external cause; E87.1 Hypo-osmolality and hyponatremia; E03.9 Hypothyroidism, unspecified; E78.5 Hyperlipidemia, unspecified; I25.10 Atherosclerotic heart disease of native coronary artery without angina pectoris; F50.00 Anorexia nervosa, unspecified; Z68.1 Body mass index [BMI] 19.9 or less, adult; Z91.81 History of falling
CPT/HCPCS: 97161-GP; C1785; C1898; G8978-GP-CI; G8979-GP-CI; G8980-GP-CI; J0690; J1200; J2250; J2930; J3010; Q9967

== ENCOUNTER → 2018-06-07 | Outpatient (CLI) | payer OTHER | LOC: BMCIMAGING 15:08 → EDSTATUS 15:09 | PROVIDERS: ATTEND Orthopaedic Surgery | DX: M11.262 Other chondrocalcinosis, left knee (principal); M25.462 Effusion, left knee; M79.89 Other specified soft tissue disorders ==

== ENCOUNTER → 2018-09-27 | Outpatient (CLI) | payer OTHER | LOC: SUPIMAGING 17:06 | PROVIDERS: ATTEND Nurse Practitioner Acute Care | DX: M79.674 Pain in right toe(s) (principal) | CPT/HCPCS: 73660-PN ==

== ENCOUNTER → 2018-10-26 | Outpatient (CLI) | payer OTHER | LOC: FIMAGING 11:06 | PROVIDERS: ATTEND Internal Medicine | DX: Z12.31 Encounter for screening mammogram for malignant neoplasm of breast (principal) ==

== ENCOUNTER → 2018-12-07 | Outpatient (CLI) | payer OTHER | LOC: FIMAGING 08:12 | PROVIDERS: ATTEND Podiatrist Foot & Ankle Surgery | DX: S92.312A Displaced fracture of first metatarsal bone, left foot, initial encounter for closed fracture (principal) ==

== ENCOUNTER → 2019-03-16 | Outpatient (CLI) | payer OTHER | LOC: FIMAGING 13:50 ==